=== PATIENT | male | born 1950 | race African-American/Black ===

== ENCOUNTER 2023-01-11 12:14 | Inpatient (IN) ==
[2023-01-11] MEDS ORDERED: SODIUM CHLORIDE 0.9% 1,000 ML IV STA (12:47)
[2023-01-11 13:41] LABS: Basophils # 0.1 10*3/uL (0.0-0.2); Basophils % 0.8 % (0.0-0.8); Eosinophils # 0.5 10*3/uL (0.0-0.87); Eosinophils % 4.5 % (0.00-10.9); Hematocrit 38.7 VOL% (42.0-52.0); Hemoglobin 12.5 GM/DL (14.0-18.0); Immature Granulocytes % 0.5 %; Immature Granulocytes Absolute 0.06 #; Lymphocytes % 33.5 % (21.2-54.2); Mean Corpuscular HGB Conc 32.3 GM/DL (32-36); Mean Corpuscular Volume 91.3 FL (87-102); Mean Platelet Volume 10.2 FL (9.6-12.0); Monocytes # 0.8 10*3/uL (0.11-0.8); Monocytes % 6.4 % (1.7-12.7); Neutrophils % 54.3 % (38.7-73.9); Platelet Count 365 T/CUMM (130-400); Red Blood Count 4.24 MC/CUMM (3.8-5.5); Red Cell Distribution Width 14.3 % (9.3-17.3); White Blood Count 11.81 T/CUMM (4-12)
[2023-01-11 13:59] LABS: Albumin 3.5 G/DL (3.4-5.0); Bilirubin,Total 0.5 MG/DL (0.20-1.00); Calcium 10.2 MG/DL (8.5-10.1); Osmolality,Calculated 294.5 MOS/KG (273-304); Potassium 4.1 MMOL/L (3.5-5.1)
[2023-01-11] MEDS ORDERED: ALBUTEROL/IPRATROPIUM 3 ML NEB RESP TX PRN (15:37)
[2023-01-11] MEDS ORDERED: DOCUSATE SODIUM 100 MG CAPSULE PO PRN (15:37)
[2023-01-11] MEDS ORDERED: ACETAMINOPHEN 325 MG TABLET PO PRN (15:37)
[2023-01-11] MEDS ORDERED: ONDANSETRON 4 MG/2 ML VIAL IV PRN (15:37)
[2023-01-11] MEDS: SODIUM CHLORIDE 0.9% 1,000 ML IV SCH (16:25)
[2023-01-11] MEDS: PANTOPRAZOLE 40 MG TABLET PO SCH (16:25)
[2023-01-11] MEDS: HEPARIN 5,000 UNIT/1 ML VIAL SUBCUT SCH (23:08)
[2023-01-12 04:21] LABS: Basophils # 0.1 10*3/uL (0.0-0.2); Basophils % 0.7 % (0.0-0.8); Eosinophils # 0.4 10*3/uL (0.0-0.87); Hematocrit 34.3 VOL% (42.0-52.0); Immature Granulocytes % 0.4 %; Immature Granulocytes Absolute 0.04 #; Lymphocytes # 3.6 10*3/uL (1.4-4.0); Lymphocytes % 33.9 % (21.2-54.2); Mean Corpuscular HGB Conc 32.1 GM/DL (32-36); Mean Platelet Volume 10.4 FL (9.6-12.0); Monocytes # 0.8 10*3/uL (0.11-0.8); Monocytes % 7.8 % (1.7-12.7); Neutrophils % 53.2 % (38.7-73.9); Platelet Count 326 T/CUMM (130-400); Red Blood Count 3.73 MC/CUMM (3.8-5.5); Red Cell Distribution Width 14.4 % (9.3-17.3); White Blood Count 10.49 T/CUMM (4-12)
[2023-01-12 04:50] LABS: Albumin 2.8 G/DL (3.4-5.0); Bilirubin,Total 0.4 MG/DL (0.20-1.00); Calcium 9.1 MG/DL (8.5-10.1); Osmolality,Calculated 292.3 MOS/KG (273-304); Potassium 4.4 MMOL/L (3.5-5.1); Thyroid Stimulating Hormone 0.781 uIU/ml (0.358-3.74); Total Protein 7.1 G/DL (6.4-8.2)
[2023-01-12] MEDS: SODIUM CHLORIDE 0.9% 1,000 ML IV SCH ×2 (06:49→18:23)
[2023-01-12] MEDS: PANTOPRAZOLE 40 MG TABLET PO SCH (09:23)
[2023-01-12] MEDS: HEPARIN 5,000 UNIT/1 ML VIAL SUBCUT SCH (11:55)
[2023-01-13 04:03] LABS: Basophils # 0.1 10*3/uL (0.0-0.2); Basophils % 0.4 % (0.0-0.8); Eosinophils # 0.2 10*3/uL (0.0-0.87); Hematocrit 32.4 VOL% (42.0-52.0); Hemoglobin 10.4 GM/DL (14.0-18.0); Lymphocytes # 4.1 10*3/uL (1.4-4.0); Lymphocytes % 24.5 % (21.2-54.2); Mean Corpuscular HGB Conc 32.1 GM/DL (32-36); Mean Corpuscular Volume 92.6 FL (87-102); Mean Platelet Volume 10.2 FL (9.6-12.0); Monocytes # 1.5 10*3/uL (0.11-0.8); Neutrophils % 64.7 % (38.7-73.9); Platelet Count 323 T/CUMM (130-400); Red Cell Distribution Width 14.5 % (9.3-17.3); White Blood Count 16.62 T/CUMM (4-12)
[2023-01-13 04:22] LABS: Calcium 8.5 MG/DL (8.5-10.1); Potassium 4.1 MMOL/L (3.5-5.1)
[2023-01-13 07:15] LABS: INR 1.2; PT Patient Result 12.9 SECS (10.1-12.1); Partial Thromboplastin Time 26.8 SECS (23.7-32.9)
[2023-01-13] MEDS ORDERED: LIDOCAINE 2% 5 ML VIAL ONE (07:53)
[2023-01-13] MEDS ORDERED: propofoL 200 MG/20 ML VIAL IV ONE (07:53)
[2023-01-13] MEDS ORDERED: ETOMIDATE 20 MG/10 ML VIAL IV ONE (07:53)
[2023-01-13] MEDS ORDERED: PHENYLEPHRINE 1 MG/10 ML SYRINGE IV ONE (08:19)
[2023-01-13] MEDS: LACTATED RINGERS 1,000 ML IV SCH (08:52)
[2023-01-13] MEDS: PANTOPRAZOLE 40 MG TABLET PO SCH (08:55)
[2023-01-13] MEDS: MORPHINE 2 MG/1 ML SYRINGE IV PRN ×2 (11:07→18:59)
[2023-01-13] MEDS: SODIUM CHLORIDE 0.9% 1,000 ML IV SCH (13:43)
[2023-01-13] MEDS: ZINC OXIDE PASTE 113 GM TUBE TOP SCH ×2 (16:45→23:03)
[2023-01-14 04:55] LABS: Basophils % 0.3 % (0.0-0.8); Eosinophils # 0.1 10*3/uL (0.0-0.87); Eosinophils % 0.8 % (0.00-10.9); Hematocrit 30.1 VOL% (42.0-52.0); Hemoglobin 9.5 GM/DL (14.0-18.0); Immature Granulocytes % 0.8 %; Immature Granulocytes Absolute 0.12 #; Lymphocytes # 3.8 10*3/uL (1.4-4.0); Lymphocytes % 24.8 % (21.2-54.2); Mean Corpuscular HGB Conc 31.6 GM/DL (32-36); Mean Corpuscular Volume 93.8 FL (87-102); Monocytes # 1.2 10*3/uL (0.11-0.8); Monocytes % 7.6 % (1.7-12.7); Neutrophils % 65.7 % (38.7-73.9); Platelet Count 288 T/CUMM (130-400); Red Blood Count 3.21 MC/CUMM (3.8-5.5); White Blood Count 15.18 T/CUMM (4-12)
[2023-01-14 05:18] LABS: Calcium 8.3 MG/DL (8.5-10.1); Osmolality,Calculated 290.7 MOS/KG (273-304); Potassium 4.1 MMOL/L (3.5-5.1)
[2023-01-14 05:22] LABS: Phosphorous 3.1 MG/DL (2.5-4.9)
[2023-01-14 05:24] LABS: Band Neutrophils 1 % (0-10); Eosinophils 2 % (0-10); Lymphocytes 19 % (20-55); Microcytosis Slight; Total Cells Counted 100
[2023-01-14] MEDS: SODIUM CHLORIDE 0.9% 1,000 ML IV SCH ×2 (05:29→19:16)
[2023-01-14] MEDS: LACTATED RINGERS 1,000 ML IV SCH (08:00)
[2023-01-14] MEDS: ZINC OXIDE PASTE 113 GM TUBE TOP SCH ×2 (11:57→23:27)
[2023-01-14] MEDS: PANTOPRAZOLE 40 MG TABLET PO SCH (11:57)
[2023-01-14] MEDS ORDERED: VANCOMYCIN INJ 1,000 MG in SODIUM CHLORIDE 0.9% 250 ML IV ONE (13:13)
[2023-01-14] MEDS: ENOXAPARIN 60 MG/0.6 ML SYRINGE SUBCUT SCH (13:38)
[2023-01-14] MEDS: MORPHINE 2 MG/1 ML SYRINGE IV PRN (15:42)
[2023-01-15] MEDS: ENOXAPARIN 60 MG/0.6 ML SYRINGE SUBCUT SCH ×3 (00:35→23:56)
[2023-01-15 04:57] LABS: Basophils % 0.2 % (0.0-0.8); Eosinophils # 0.4 10*3/uL (0.0-0.87); Eosinophils % 3.7 % (0.00-10.9); Hematocrit 34.3 VOL% (42.0-52.0); Hemoglobin 10.8 GM/DL (14.0-18.0); Immature Granulocytes % 0.4 %; Immature Granulocytes Absolute 0.05 #; Lymphocytes # 2.7 10*3/uL (1.4-4.0); Lymphocytes % 24.5 % (21.2-54.2); Mean Corpuscular HGB Conc 31.5 GM/DL (32-36); Mean Corpuscular Volume 94.2 FL (87-102); Mean Platelet Volume 11.4 FL (9.6-12.0); Monocytes # 0.6 10*3/uL (0.11-0.8); Monocytes % 5.3 % (1.7-12.7); Neutrophils % 65.9 % (38.7-73.9); Platelet Count 166 T/CUMM (130-400); Red Blood Count 3.64 MC/CUMM (3.8-5.5); Red Cell Distribution Width 15.2 % (9.3-17.3); White Blood Count 11.16 T/CUMM (4-12)
[2023-01-15 05:12] LABS: Albumin 1.9 G/DL (3.4-5.0); Bilirubin,Total 0.5 MG/DL (0.20-1.00); Osmolality,Calculated 282.3 MOS/KG (273-304); Potassium 3.7 MMOL/L (3.5-5.1); Total Protein 5.8 G/DL (6.4-8.2)
[2023-01-15] MEDS: SODIUM CHLORIDE 0.9% 1,000 ML IV SCH ×2 (06:07→12:24)
[2023-01-15] MEDS: PANTOPRAZOLE 40 MG TABLET PO SCH (10:47)
[2023-01-15] MEDS: LACTATED RINGERS 1,000 ML IV SCH (12:25)
[2023-01-15] MEDS: ZINC OXIDE PASTE 113 GM TUBE TOP SCH ×2 (13:57→22:33)
[2023-01-15] MEDS: MORPHINE 2 MG/1 ML SYRINGE IV PRN (20:14)
[2023-01-16 04:50] LABS: Basophils % 0.2 % (0.0-0.8); Eosinophils # 0.5 10*3/uL (0.0-0.87); Eosinophils % 4.2 % (0.00-10.9); Hematocrit 27.1 VOL% (42.0-52.0); Hemoglobin 8.8 GM/DL (14.0-18.0); Immature Granulocytes % 0.4 %; Immature Granulocytes Absolute 0.05 #; Lymphocytes # 4.1 10*3/uL (1.4-4.0); Lymphocytes % 34.3 % (21.2-54.2); Mean Corpuscular HGB Conc 32.5 GM/DL (32-36); Mean Platelet Volume 10.8 FL (9.6-12.0); Monocytes # 0.7 10*3/uL (0.11-0.8); Neutrophils % 54.9 % (38.7-73.9); Platelet Count 275 T/CUMM (130-400); Red Blood Count 3.01 MC/CUMM (3.8-5.5); Red Cell Distribution Width 14.8 % (9.3-17.3); White Blood Count 11.91 T/CUMM (4-12)
[2023-01-16 05:07] LABS: Calcium 7.7 MG/DL (8.5-10.1); Osmolality,Calculated 278.4 MOS/KG (273-304); Potassium 3.1 MMOL/L (3.5-5.1)
[2023-01-16] MEDS ORDERED: POTASSIUM CHLORIDE 20 MEQ TABLET PO ONE (08:03)
[2023-01-16] MEDS ORDERED: MAGNESIUM SULF RIDER 2 GM/50 ML PREMIX IV ONE (08:03)
[2023-01-16] MEDS: MORPHINE 2 MG/1 ML SYRINGE IV PRN (09:35)
[2023-01-16] MEDS: PANTOPRAZOLE 40 MG TABLET PO SCH (09:35)
[2023-01-16] MEDS: LACTATED RINGERS 1,000 ML IV SCH (09:54)
[2023-01-16 12:04] VITALS: BP 91/59
[2023-01-16] MEDS: ZINC OXIDE PASTE 113 GM TUBE TOP SCH (13:03)
[2023-01-16] MEDS: ENOXAPARIN 60 MG/0.6 ML SYRINGE SUBCUT SCH (13:03)
== END 2023-01-16 15:15 | disposition hospice, home (50) | DRG 682 ==
LOC: N.EDINP 12:14 → N.ED 12:14 → SUATTDRO 15:37 → N.TELES 16:15 → SUATTDRO 01-13 09:53
PROVIDERS: ADMIT Internal Medicine; ATTEND Family Medicine
PROC: EGDWPEG (ICD-10-PCS; 2023-01-13 09:05)